=== PATIENT | female | born 1960 | race Caucasian/White ===

== ENCOUNTER 2022-03-14 13:34 | Emergency (ER) | payer BC ==
[2022-03-14 16:06] LABS: ESTIMATED GFR 73 mL/min (>60)
== END 2022-03-14 18:55 | disposition home or self-care (01) ==
LOC: JD.ED 13:34
DX: E87.6 Hypokalemia (principal)
CPT/HCPCS: 36415; 70450; 70450-26; 80053; 82553; 82947; 83735; 83880; 84443; 85025; 85610; 85730; 86140; 99284